=== PATIENT | male | born 1950 ===

== ENCOUNTER 2021-01-11 12:40 | Inpatient (IN) | payer MEDICARE ==
[~2021-01-11] VITALS: Ht 177.8 cm; Wt 92.0 kg
[2021-01-11 18:30] VITALS: BP 162/100
[2021-01-11] MEDS ORDERED: ASPI325T11 PO (18:51)
[2021-01-11] MEDS ORDERED: DEXTROSE 50% 25 GM / 50ML DISP.SYRIN. IV PRN (20:30)
[2021-01-11] MEDS ORDERED: ZOLPIDEM 5 MG TABLET. PO PRN (20:30)
[2021-01-11] MEDS ORDERED: ACETAMINOPHEN 325 MG TABLET. PO PRN (20:30)
[2021-01-11] MEDS ORDERED: LORazepam 0.5 MG TABLET PO PRN (20:30)
[2021-01-11] MEDS ORDERED: ONDANSETRON PF 4 MG/2 ML VIAL. IVP PRN (20:30)
[2021-01-11] MEDS ORDERED: DOCUSATE SODIUM 100 MG CAPSULE. PO PRN (20:30)
[2021-01-11] MEDS ORDERED: SENNOSIDES 8.6 MG TABLET PO PRN (20:30)
[2021-01-11] MEDS ORDERED: PROCHLORPERAZINE 10 MG/2 ML VIAL. IV PRN (20:30)
--- NOTE | 2021-01-11 20:30 | PDOC1 ---
History and Physical Date of Service: DOS: DATE: 01/11/21 TIME: 20:23 Chief Complaint: Chief Complain: Abdominal pain History of Present Illness: HPI: 70-year-old male with no significant past medical history who comes in from [facility] due to bright red rectal bleeding. Onset was this morning and he states that he had about 12 ounces of bright red blood. He has had external hemorrhoids in the past but this is of volume loss and nature of the amount of blood that he normally has had in the past. While in the ED at [facility] he had another large bloody bowel movement. He does complain of mid lower abdominal cramping pain. Patient is a left nephrectomy donor for his son and also bilateral inguinal hernia repair in the past. He is generally pretty healthy and had a colonoscopy about 8 years ago and everything was normal. Patient does take 225 mg aspirin daily. Denies any fevers, chest pain, s hortness of breath or dysuria. No history of GI bleed in the past. Of note, before transfer over to [facility] patient had syncopal episode x2 after having large bowel movements. He also experienced a fall where he was sent to the CT scanner to evaluate for any traumatic injury. All imaging was negative for intracranial damage. Past Medical/Surgical History: PMH/PSH: Past surgical history of a left nephrectomy and bilateral inguinal hernia repair. Allergies: Allergies: Coded Allergies: No Known Drug Allergies (Unverified , 01/11/21) Family History: Family History: Reviewed with no bleeding history in the family Social History: Social History: Denies alcohol, drug or tobacco abuse Current Medications: Current Medications Active Scripts Active Reported Aspirin Ec (Aspirin) 325 Mg Tablet. 1 Tab PO DAILY ROS: Review of Systems Review of System REVIEW OF SYSTEMS: GENERAL: Denies weakness SKIN: No bruising, hair changes or rashes. EYES: No blurred, double or loss of vision. NOSE AND THROAT: No history of nosebleeds, hoarseness or sore throat. HEART: No history of palpitations, chest pain or shortness of breath on exertion. LUNGS: Denies cough, hemoptysis, wheezing or shortness of breath. GASTROINTESTINAL: Denies changes in appetite, nausea, vomiting, diarrhea or constipation. GENITOURINARY: No history of frequency, urgency, hesitancy or nocturia. NEUROLOGIC: Denies history of numbness, tingling, or tremor. PSYCHIATRIC: No history of panic, anxiety or depression. ENDOCRINE: No history of heat or cold intolerance, polyuria or polydipsia. EXTREMITIES: Denies joint pain, pain on walking or stiffness. Physical Exam: Vital Signs: Vital Signs Date Time Temp Pulse Resp B/P (MAP) Pulse Ox O2 Delivery O2 Flow Rate FiO2 01/11/21 18:30 98.1 98 18 162/100 (120) 97 Room Air 98.1 Physcial Exam: GEN: No apparent distress. Alert and oriented HEENT: Normal cephalic, atraumatic, external auditory canals are patent EYES: Extraocular muscles are intact, pupil are equally round and reactive to light and accommodation MUSCULOSKELETAL: Well developed , well nourished, good range of motion ENDOCRINE: No thyromegaly was palpated LYMPHATICS: No cervical chain or axillary nodes were noted HEMATOPOIETIC: No bruising NECK: Supple, no JVD, no thyromegaly was noted LUNGS: Clear to auscultation in all lung colin without rhonchi or wheezing HEART: RRR, S!, S2 present. Peripheral pulses intact, no obvious murmurs noted ABDOMEN: Soft, nontender. Positive bowel sounds, no organomegaly, normal bowel sounds EXTREMITIES: Without clubbing, cyanosis, or edema. Pedal pulses intact. Negative Homans sign NEUROLOGIC: Normal speech and tone. A&O x 3, moves all extremities, no obvious focal deficits PSYCHIATRIC: Normal affect, normal mood. Stable SKIN: No ulcerations or rashes, good skin turgor, no jaundice VASCULAR: Good capillary refill, neurovascular bundle appears to be intact Labs: Labs: Pending labs to review Images: Images CT angio of the abdomen pelvis showed small amount of high density material within the colon at the hepatic flexure. This could represent active extravasation of contrast. There is also rectosigmoid wall thickening possible colitis. Assessment/Plan Assessment/Plan Acute rectal bleeding Anemia due to acute GI bleed status post 1 unit PRBC Possible rectosigmoid colitis Syncope, likely vasovagal Admit to hospitalist service for further management Trend hemoglobin levels GI consult Continue IV fluids N.p.o. 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 Discussed with RN and SW. In addition to my E/M visit, advance care planning done with A total time of 20 minutes was spent from 730 to 7:50 PM face to face in discussion regarding the patient's goals of care, CODE STATUS. Justifications for Admission Other Justification Rectal bleeding MALCOLM PEREZ MD Jan 11, 2021 20:30
[2021-01-11] MEDS: IV NORMAL SALINE 1000ML BAG 1,000 ML IV SCH (21:43)
[2021-01-11] MEDS ORDERED: CRESTOR5 MG PO (22:06)
[2021-01-11 23:35] VITALS: BP 144/81
[2021-01-12 03:15] VITALS: BP 145/78
[2021-01-12 04:02] LABS: BASO % 0 % (0-3); EOS # 0.1 x10^3/uL (0.0-0.7); EOS % 1 % (0-3); HEMATOCRIT 30.1 % (39.0-53.0); HEMOGLOBIN 10.4 g/dL (13.0-17.5); LYMPH % 21 % (24-48); MEAN CORPUSCULAR HEMOGLOBIN 31 pg (25-35); MEAN CORPUSCULAR HGB CONC 35 g/dL (31-37); MEAN CORPUSCULAR VOLUME 89 fL (79-100); MONO # 0.8 x10^3/uL (0.0-1.1); MONO % 9 % (0-9); NEUT # 6.6 x10^3/uL (1.8-7.7); NEUT % 69 % (31-73); PLATELET COUNT 176 x10^3/uL (140-400); RED BLOOD COUNT 3.39 x10^6/uL (4.30-5.70); RED CELL DISTRIBUTION WIDTH 13.2 % (11.5-14.5); WHITE BLOOD COUNT 9.6 x10^3/uL (4.0-11.0)
[2021-01-12 04:52] LABS: CALCIUM 8.1 mg/dL (8.5-10.1); CREATININE 1.2 mg/dL (0.7-1.3); GFR 60.2; MAGNESIUM 1.9 mg/dL (1.8-2.4); PHOSPHORUS 3.2 mg/dL (2.6-4.7); POTASSIUM 4.2 mmol/L (3.5-5.1)
[2021-01-12] MEDS: IV NORMAL SALINE 1000ML BAG 1,000 ML IV SCH ×2 (06:30→16:45)
[2021-01-12 07:44] VITALS: BP 180/100
[2021-01-12] MEDS ORDERED: LABETALOL 20 MG/4 ML DISP.SYRIN. IVP PRN (08:45)
--- NOTE | 2021-01-12 10:23 | PDOC ---
[employer] PROGRESS NOTE Date of Service DOS: DATE: 01/12/21 TIME: 10:21 Chief Complaint Chief Complaint Acute rectal bleeding Anemia due to acute GI bleed status post 1 unit PRBC Possible rectosigmoid colitis Syncope, likely vasovagal Admit to hospitalist service for further management Trend hemoglobin levels GI consult Continue IV fluids N.p.o. 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 due to bright red rectal bleeding. Onset was this morning and he states that he had about 12 ounces of bright red blood. He has had external hemorrhoids in the past but this is of volume loss and nature of the amount of blood that he normally has had in the past. While in the ED at [facility] he had another large bloody bowel movement. He does complain of mid lower abdominal cramping pain. Patient is a left nephrectomy donor for his son and also bilateral inguinal hernia repair in the past. He is generally pretty healthy and had a colonoscopy about 8 years ago and everything was normal. Patient does take 225 mg aspirin daily. Denies any fevers, chest pain, shor tness of breath or dysuria. No history of GI bleed in the past. Of note, before transfer over to [facility] patient had syncopal episode x2 after having large bowel movements. He also experienced a fall where he was sent to the CT scanner to evaluate for any traumatic injury. All imaging was negative for intracranial damage. 01/12/2021 No acute events overnight. Patient seen examined bedside. Patient endorsing flatus and normal bowel. Department today with left hand. We will continue to trend hemoglobin every 6 hours. Pending GI evaluation. Patient's chart, labs, images were reviewed and discussed with RN Vitals/I&O Vitals/I&O: Vital Signs Date Time Temp Pulse Resp B/P (MAP) Pulse Ox O2 Delivery O2 Flow Rate FiO2 01/12/21 08:57 89 180/100 01/12/21 08:00 Room Air 01/12/21 07:44 98.1 18 98 98.1 I & O 01/11/21 01/11/2121 15:00 23:00 07:00 Intake Total 0 ml 725 ml Output Total 250 ml Balance 0 ml 475 ml Physical Exam General: Alert, Oriented X3, Cooperative Heart: Regular rate Lungs: Clear Abdomen: Normal bowel sounds Extremities: No clubbing Skin: No rashes Labs Labs: Laboratory Tests Test 01/12/21 03:30 White Blood Count 9.6 x10^3/uL (4.0-11.0) Red Blood Count 3.39 x10^6/uL (4.30-5.70) Hemoglobin 10.4 g/dL (13.0-17.5) Hematocrit 30.1 % (39.0-53.0) Mean Corpuscular Volume 89 fL (79-100) Mean Corpuscular Hemoglobin 31 pg (25-35) Mean Corpuscular Hemoglobin Concent 35 g/dL (31-37) Red Cell Distribution Width 13.2 % (11.5-14.5) Platelet Count 176 x10^3/uL (140-400) Neutrophils (%) (Auto) 69 % (31-73) Lymphocytes (%) (Auto) 21 % (24-48) Monocytes (%) (Auto) 9 % (0-9) Eosinophils (%) (Auto) 1 % (0-3) Basophils (%) (Auto) 0 % (0-3) Neutrophils # (Auto) 6.6 x10^3/uL (1.8-7.7) Lymphocytes # (Auto) 2.0 x10^3/uL (1.0-4.8) Monocytes # (Auto) 0.8 x10^3/uL (0.0-1.1) Eosinophils # (Auto) 0.1 x10^3/uL (0.0-0.7) Basophils # (Auto) 0.0 x10^3/uL (0.0-0.2) Sodium Level 141 mmol/L (136-145) Potassium Level 4.2 mmol/L (3.5-5.1) Chloride Level 108 mmol/L (98-107) Carbon Dioxide Level 28 mmol/L (21-32) Anion Gap 5 (6-14) Blood Urea Nitrogen 16 mg/dL (8-26) Creatinine 1.2 mg/dL (0.7-1.3) Estimated GFR (Cockcroft-Gault) 60.2 Glucose Level 124 mg/dL (70-99) Calcium Level 8.1 mg/dL (8.5-10.1) Phosphorus Level 3.2 mg/dL (2.6-4.7) Magnesium Level 1.9 mg/dL (1.8-2.4) Comment Review of Relevant I have reviewed the following items demetrio (where applicable) has been applied. Medications: Current Medications Medications (Trade) Dose Ordered Sig/Eufemia Route PRN Reason Start Time Stop Time Status Last Admin Dose Admin Sodium Chloride 1,000 ml @ 100 mls/hr Q10H IV 01/11/21 20:30 01/12/21 06:30 Labetalol HCl (Normodyne Iv Push) 20 mg PRN Q2HR PRN IVP HYPERTENSION 01/12/21 08:45 01/12/21 08:57 Justifications for Admission Other Justification Rectal bleeding MALCOLM PERZE MD Jan 12, 2021 10:23
[2021-01-12 10:50] VITALS: BP 145/85
--- NOTE | 2021-01-12 12:03 | PDOC2 ---
GI CONSULT Date of Service: DATE: 01/12/21 TIME: 11:54 Reason For Consult: Rectal bleeding. HPI: HPI: 70 y/o male with onset of rectal bleeding yesterday AM. Seen at [facility] and transferred here. Denies pain. Did have some vasovagal issues with N, V and fainting in the ER at [facility]. Says no blood for 24 hours and normal stool described today. CTA abdomen in ER with perhaps some extravasation of contrast near hepatic flexure and diverticulosis (in this area as well). Typically free of diarrhea or constipation. No melena. Historically "normal" colonoscopy 8 years ago. GIFH negative. Denies heartburn, dysphagia, PUD, GB, liver or pancreatic history. No tobacco or alcohol use. Does take 325mg ASA daily. Presenting hemoglobin in ER 13.9; 10.4 here today. PMH: PMH: DM, HLP. S/p left nephrectomy (donated) and ventral hernia repair. FH: Family History: Other (Nothing GI-related.) Social History: Smoke: No ALCOHOL: none Drugs: None ROS: GEN: Denies fevers, chills, sweats HEENT: Denies blurred vision, sore throat CV: Denies chest pain RESP: Denies shortness of air, cough GI: Per HPI : Denies hematuria, dysuria ENDO: Denies weight changes NEURO: Denies confusion, dizziness MSK: Denies weakness, joint pain/swelling SKIN: Denies jaundice, pruritus Vitals: Vitals: Vital Signs Date Time Temp Pulse Resp B/P (MAP) Pulse Ox O2 Delivery O2 Flow Rate FiO2 01/12/21 10:50 98.1 69 18 145/85 (105) 100 Room Air 98.1 Labs: Labs: Laboratory Tests Test 01/12/21 03:30 White Blood Count 9.6 x10^3/uL (4.0-11.0) Red Blood Count 3.39 x10^6/uL (4.30-5.70) Hemoglobin 10.4 g/dL (13.0-17.5) Hematocrit 30.1 % (39.0-53.0) Mean Corpuscular Volume 89 fL (79-100) Mean Corpuscular Hemoglobin 31 pg (25-35) Mean Corpuscular Hemoglobin Concent 35 g/dL (31-37) Red Cell Distribution Width 13.2 % (11.5-14.5) Platelet Count 176 x10^3/uL (140-400) Neutrophils (%) (Auto) 69 % (31-73) Lymphocytes (%) (Auto) 21 % (24-48) Monocytes (%) (Auto) 9 % (0-9) Eosinophils (%) (Auto) 1 % (0-3) Basophils (%) (Auto) 0 % (0-3) Neutrophils # (Auto) 6.6 x10^3/uL (1.8-7.7) Lymphocytes # (Auto) 2.0 x10^3/uL (1.0-4.8) Monocytes # (Auto) 0.8 x10^3/uL (0.0-1.1) Eosinophils # (Auto) 0.1 x10^3/uL (0.0-0.7) Basophils # (Auto) 0.0 x10^3/uL (0.0-0.2) Sodium Level 141 mmol/L (136-145) Potassium Level 4.2 mmol/L (3.5-5.1) Chloride Level 108 mmol/L (98-107) Carbon Dioxide Level 28 mmol/L (21-32) Anion Gap 5 (6-14) Blood Urea Nitrogen 16 mg/dL (8-26) Creatinine 1.2 mg/dL (0.7-1.3) Estimated GFR (Cockcroft-Gault) 60.2 Glucose Level 124 mg/dL (70-99) Calcium Level 8.1 mg/dL (8.5-10.1) Phosphorus Level 3.2 mg/dL (2.6-4.7) Magnesium Level 1.9 mg/dL (1.8-2.4) Allergies: Coded Allergies: No Known Drug Allergies (Unverified , 01/11/21) Medications: Current Medications Medications (Trade) Dose Ordered Sig/Eufemia Route PRN Reason Start Time Stop Time Status Last Admin Dose Admin Sodium Chloride 1,000 ml @ 100 mls/hr Q10H IV 01/11/21 20:30 01/12/21 06:30 Labetalol HCl (Normodyne Iv Push) 20 mg PRN Q2HR PRN IVP HYPERTENSION 01/12/21 08:45 01/12/21 08:57 Imaging: Imaging: CTA at [facility] reviewed. PE: GEN: NAD HEENT: Atraumatic, PERRLA LUNGS: CTAB HEART: RRR, no murmurs ABD: NABS, S/ND/NT, no masses EXTREMITY: No edema SKIN: No rashes, no jaundice NEURO/PSYCH: A & O 3 A/P: A/P: IMP: Hematochezia with drop in hemoglobin. Nature of bleeding suggests probably diverticular in origin. Seems to have at least temporarily stopped. REC: OK to continue clears. Would stop ASA altogether; recent data says no benefit for primary prophylaxis. Monitor hemoglobin. Would keep at least another 36 hours to ensure no recurrent bleeding. CRISTOPHER LANE MD Jan 12, 2021 12:03
[2021-01-12 14:02] VITALS: BP 169/86
[2021-01-12 19:20] VITALS: BP 148/84
[2021-01-12 22:40] VITALS: BP 148/80
[2021-01-13] MEDS: IV NORMAL SALINE 1000ML BAG 1,000 ML IV SCH (01:41)
[2021-01-13 03:00] VITALS: BP 158/90
[2021-01-13 06:43] LABS: BASO % 0 % (0-3); EOS # 0.2 x10^3/uL (0.0-0.7); EOS % 2 % (0-3); HEMATOCRIT 29.2 % (39.0-53.0); LYMPH # 1.9 x10^3/uL (1.0-4.8); LYMPH % 20 % (24-48); MEAN CORPUSCULAR HEMOGLOBIN 30 pg (25-35); MEAN CORPUSCULAR HGB CONC 34 g/dL (31-37); MEAN CORPUSCULAR VOLUME 89 fL (79-100); MONO # 0.7 x10^3/uL (0.0-1.1); MONO % 7 % (0-9); NEUT # 6.8 x10^3/uL (1.8-7.7); NEUT % 71 % (31-73); PLATELET COUNT 164 x10^3/uL (140-400); WHITE BLOOD COUNT 9.7 x10^3/uL (4.0-11.0)
[2021-01-13 06:55] LABS: CALCIUM 8.3 mg/dL (8.5-10.1); CREATININE 1.3 mg/dL (0.7-1.3); GFR 54.9; POTASSIUM 3.8 mmol/L (3.5-5.1)
[2021-01-13 07:00] VITALS: BP 149/93
--- NOTE | 2021-01-13 09:41 | PDOC ---
Date of Service: DATE: 01/13/21 TIME: 09:37 Subjective: Subjective: Still awaiting breakfast. Hungry. Ate regular diet last night. No bleeding - brown stool x 2 yesterday with maybe a little black stuff, no red blood like before. Wants to stop IVF. Wants heart monitor off because it's not working anyway - stickers are on gown. Really would like to go home. Objective: Vital Signs: Vital Signs Date Time Temp Pulse Resp B/P (MAP) Pulse Ox O2 Delivery O2 Flow Rate FiO2 01/13/21 07:00 98.6 86 18 149/93 (111) 97 Room Air 98.6 Labs: Laboratory Tests Test 01/12/21 12:20 01/13/21 04:10 Hemoglobin 10.6 g/dL 10.0 g/dL White Blood Count 9.7 x10^3/uL Red Blood Count 3.30 x10^6/uL Hematocrit 29.2 % Mean Corpuscular Volume 89 fL Mean Corpuscular Hemoglobin 30 pg Mean Corpuscular Hemoglobin Concent 34 g/dL Red Cell Distribution Width 13.0 % Platelet Count 164 x10^3/uL Neutrophils (%) (Auto) 71 % Lymphocytes (%) (Auto) 20 % Monocytes (%) (Auto) 7 % Eosinophils (%) (Auto) 2 % Basophils (%) (Auto) 0 % Neutrophils # (Auto) 6.8 x10^3/uL Lymphocytes # (Auto) 1.9 x10^3/uL Monocytes # (Auto) 0.7 x10^3/uL Eosinophils # (Auto) 0.2 x10^3/uL Basophils # (Auto) 0.0 x10^3/uL Sodium Level 141 mmol/L Potassium Level 3.8 mmol/L Chloride Level 108 mmol/L Carbon Dioxide Level 26 mmol/L Anion Gap 7 Blood Urea Nitrogen 12 mg/dL Creatinine 1.3 mg/dL Estimated GFR (Cockcroft-Gault) 54.9 Glucose Level 116 mg/dL Calcium Level 8.3 mg/dL Magnesium Level 2.0 mg/dL PE: GEN: NAD - in recliner LUNGS: CTAB HEART: RRR ABD: NABS, S/ND/NT NEURO/PSYCH: A & O 3 A/P: Suspected diverticular bleed - resolving - no recurrent bleeding >24 hrs, stable Hgb, tolerating regular diet -- Discussed w/ nurse - ok to DC per GI. Keep off ASA for now - ?stop altogether? - follow-up w/ PCP in [place]. Justicifation of Admission Dx: Justifications for Admission: Justification of Admission Dx: Yes DARRELL DEAN Jan 13, 2021 09:41
--- NOTE | 2021-01-13 10:16 | PDOC3 ---
Discharge Summary Visit Information Date of Admission: Jan 11, 2021 Date of Discharge: Jan 13, 2021 Final Diagnosis syncope, blood loss diverticular bleed - resolved acute blood per rectum, GI bleed from NSAID use hyperlipids overweight, BMI 29 Brief Hospital Course Allergies Allergies Coded Allergies Type Severity Reaction Last Updated Verified No Known Drug Allergies 01/11/21 No Vital Signs Vital Signs Date Time Temp Pulse Resp B/P (MAP) Pulse Ox O2 Delivery O2 Flow Rate FiO2 01/13/21 07:00 98.6 86 18 149/93 (111) 97 Room Air 98.6 Lab Results Laboratory Tests Test 01/12/21 03:30 01/12/21 12:20 01/13/21 04:10 White Blood Count 9.6 x10^3/uL (4.0-11.0) 9.7 x10^3/uL (4.0-11.0) Red Blood Count 3.39 x10^6/uL (4.30-5.70) 3.30 x10^6/uL (4.30-5.70) Hemoglobin 10.4 g/dL (13.0-17.5) 10.6 g/dL (13.0-17.5) 10.0 g/dL (13.0-17.5) Hematocrit 30.1 % (39.0-53.0) 29.2 % (39.0-53.0) Mean Corpuscular Volume 89 fL (79-100) 89 fL (79-100) Mean Corpuscular Hemoglobin 31 pg (25-35) 30 pg (25-35) Mean Corpuscular Hemoglobin Concent 35 g/dL (31-37) 34 g/dL (31-37) Red Cell Distribution Width 13.2 % (11.5-14.5) 13.0 % (11.5-14.5) Platelet Count 176 x10^3/uL (140-400) 164 x10^3/uL (140-400) Neutrophils (%) (Auto) 69 % (31-73) 71 % (31-73) Lymphocytes (%) (Auto) 21 % (24-48) 20 % (24-48) Monocytes (%) (Auto) 9 % (0-9) 7 % (0-9) Eosinophils (%) (Auto) 1 % (0-3) 2 % (0-3) Basophils (%) (Auto) 0 % (0-3) 0 % (0-3) Neutrophils # (Auto) 6.6 x10^3/uL (1.8-7.7) 6.8 x10^3/uL (1.8-7.7) Lymphocytes # (Auto) 2.0 x10^3/uL (1.0-4.8) 1.9 x10^3/uL (1.0-4.8) Monocytes # (Auto) 0.8 x10^3/uL (0.0-1.1) 0.7 x10^3/uL (0.0-1.1) Eosinophils # (Auto) 0.1 x10^3/uL (0.0-0.7) 0.2 x10^3/uL (0.0-0.7) Basophils # (Auto) 0.0 x10^3/uL (0.0-0.2) 0.0 x10^3/uL (0.0-0.2) Sodium Level 141 mmol/L (136-145) 141 mmol/L (136-145) Potassium Level 4.2 mmol/L (3.5-5.1) 3.8 mmol/L (3.5-5.1) Chloride Level 108 mmol/L (98-107) 108 mmol/L (98-107) Carbon Dioxide Level 28 mmol/L (21-32) 26 mmol/L (21-32) Anion Gap 5 (6-14) 7 (6-14) Blood Urea Nitrogen 16 mg/dL (8-26) 12 mg/dL (8-26) Creatinine 1.2 mg/dL (0.7-1.3) 1.3 mg/dL (0.7-1.3) Estimated GFR (Cockcroft-Gault) 60.2 54.9 Glucose Level 124 mg/dL (70-99) 116 mg/dL (70-99) Calcium Level 8.1 mg/dL (8.5-10.1) 8.3 mg/dL (8.5-10.1) Phosphorus Level 3.2 mg/dL (2.6-4.7) Magnesium Level 1.9 mg/dL (1.8-2.4) 2.0 mg/dL (1.8-2.4) Laboratory Tests Test 01/12/21 12:20 01/13/21 04:10 Hemoglobin 10.6 g/dL (13.0-17.5) 10.0 g/dL (13.0-17.5) White Blood Count 9.7 x10^3/uL (4.0-11.0) Red Blood Count 3.30 x10^6/uL (4.30-5.70) Hematocrit 29.2 % (39.0-53.0) Mean Corpuscular Volume 89 fL (79-100) Mean Corpuscular Hemoglobin 30 pg (25-35) Mean Corpuscular Hemoglobin Concent 34 g/dL (31-37) Red Cell Distribution Width 13.0 % (11.5-14.5) Platelet Count 164 x10^3/uL (140-400) Neutrophils (%) (Auto) 71 % (31-73) Lymphocytes (%) (Auto) 20 % (24-48) Monocytes (%) (Auto) 7 % (0-9) Eosinophils (%) (Auto) 2 % (0-3) Basophils (%) (Auto) 0 % (0-3) Neutrophils # (Auto) 6.8 x10^3/uL (1.8-7.7) Lymphocytes # (Auto) 1.9 x10^3/uL (1.0-4.8) Monocytes # (Auto) 0.7 x10^3/uL (0.0-1.1) Eosinophils # (Auto) 0.2 x10^3/uL (0.0-0.7) Basophils # (Auto) 0.0 x10^3/uL (0.0-0.2) Sodium Level 141 mmol/L (136-145) Potassium Level 3.8 mmol/L (3.5-5.1) Chloride Level 108 mmol/L (98-107) Carbon Dioxide Level 26 mmol/L (21-32) Anion Gap 7 (6-14) Blood Urea Nitrogen 12 mg/dL (8-26) Creatinine 1.3 mg/dL (0.7-1.3) Estimated GFR (Cockcroft-Gault) 54.9 Glucose Level 116 mg/dL (70-99) Calcium Level 8.3 mg/dL (8.5-10.1) Magnesium Level 2.0 mg/dL (1.8-2.4) Brief Hospital Course Mr. Child is a 70 old male, admit for syncope, transfer from [facility] due to bright red rectal bleeding. m,aybe 12 ounces of bright red blood. Hgb stable GI consult stop asa Discharge Information Condition at Discharge: Improved Follow Up: Weeks Disposition/Orders: D/C to Home Scheduled Rosuvastatin Calcium (Crestor) 5 Mg Tablet, 10 MG PO DAILY for CHOLESTEROL, #30 Ref 5 (Reported) Entered as Reported by: Blair Vega on 01/11/212205 Last Action: New Order on 01/11/212205 by Blair Vega Discontinued Medications Aspirin (Aspirin Ec) 325 Mg Tablet.dr, 1 TAB PO DAILY for blood thinner, #30 Ref 5 (Reported) Entered as Reported by: Blair Vega on 01/11/211850 Last Action: New Order on 01/11/211850 by Blair Vega Patient Instructions Patient Instructions pt seen face to face Justicifation of Admission Dx: Justifications for Admission: Justification of Admission Dx: Yes YARIEL HICKEY MD Jan 13, 2021 10:16
--- NOTE | 2021-01-13 11:09 | NUR ---
SS following for discharge planning. SS reviewed pt chart and discussed with pt RN. Pt is from home with spouse and is currently on room air. Discharge order on the chart for home with self care.
--- NOTE | 2021-01-13 11:15 | NUR ---
DISCHARGE INSTRUCTIONS GIVEN, QUESTIONS AND CONCERNS ANSWERED, PATIENT AND AT THE BEDSIDE VERBALIZED UNDERSTANDING OF DISCHARGE INFORMATION INCLUDING TAKING ALL MEDICATIONS INSTRUCTED AND FOLLOWING UP WITH HIS PRIMARY PROVIDER AND DR. LANE INSTRUCTED. PATIENT ENCOURAGED TO STOP TAKING ASA ORDERED BY DR. HICKEY. ALL PERSONAL BELONGINGS GATHERED BY THE PATIENTS' AND PLACED IN BAGS FOR DISCHARGE,
--- NOTE | 2021-01-13 11:30 | NUR ---
PATIENT AMBULATES OFF THE UNIT ALONGSIDE THIS TRAFFIC ATTENDANT, EMOTIONAL SUPPORT GIVEN, FOLLOW UP APPOINTMENTS ENCOURAGED.
== END 2021-01-13 11:30 | disposition home or self-care (01) | DRG 378 ==
LOC: 6 SOUTH 12:40
PROVIDERS: ADMIT Internal Medicine; ATTEND Internal Medicine
DX: K57.91 Diverticulosis of intestine, part unspecified, without perforation or abscess with bleeding (principal); D62 Acute posthemorrhagic anemia; E11.9 Type 2 diabetes mellitus without complications; E66.3 Overweight; E78.5 Hyperlipidemia, unspecified; T39.395A Adverse effect of other nonsteroidal anti-inflammatory drugs [NSAID], initial encounter; Z68.29 Body mass index [BMI] 29.0-29.9, adult; Z79.82 Long term (current) use of aspirin; Z90.5 Acquired absence of kidney; Y92.89 Other specified places as the place of occurrence of the external cause
CPT/HCPCS: 36415; 80048; 83735; 84100; 85018; 85025; J3490; J7030; G0378